=== PATIENT | male | born 1960 | race Caucasian/White ===

== ENCOUNTER 2025-11-10 07:27 | Emergency (ER) | payer OTHER ==
[~2025-11-10 07:27] MED LIST: ALDACTONE50 M1 PO; CHLORTHALIDONE25 MG PO; CORDROL20 MG PO; DEPAKOTE ER250 MG PO; DONEPEZIL HCL10 MG PO; EC NAPROSYN500 MG PO; FLEXERIL10 MG PO; FUROSEMIDE20 M1 PO; HYDROCODONE BIT1 T11 PO; LIPITOR40 MG PO; Lopressor25 MG PO; METFORMIN HYD1000 MG PO; METFORMIN500 MG PO; ONGLYZA5 MG PO; Ondansetron4 MG PO; ZESTRIL20 MG PO; ZOLOFT50 MG PO; Zestril,Prinivil5 MG PO
[2025-11-10] MEDS ORDERED: AMLODIPINE BESYL5 MG PO (07:35)
[2025-11-10] MEDS ORDERED: CITALOPRAM20 MG PO (07:35)
[2025-11-10] MEDS ORDERED: Depakote250 MG PO (07:36)
[2025-11-10] MEDS ORDERED: Clopidogrel75 MG PO (07:36)
[2025-11-10] MEDS ORDERED: HYDROXYZINE HCL25 MG PO (07:37)
[2025-11-10] MEDS ORDERED: LASIX20 MG PO (07:37)
[2025-11-10] MEDS ORDERED: JARDIANCE10 MG PO (07:38)
[2025-11-10] MEDS ORDERED: MEMANTINE HCL10 MG PO (07:38)
[2025-11-10] MEDS ORDERED: MAGNESIUM400 MG PO (07:38)
[2025-11-10] MEDS ORDERED: LORAZEPAM0.5 M1 PO (07:38)
[2025-11-10] MEDS ORDERED: EXELON1 EAC2 TD (07:39)
[2025-11-10] MEDS ORDERED: ALDACTONE25 M1 PO (07:39)
[2025-11-10] MEDS ORDERED: LOPRESSOR25 MG PO (07:39)
[2025-11-10] MEDS ORDERED: VITAMIN D350 MC3 PO (07:40)
[2025-11-10] MEDS ORDERED: ACETAMINOPHEN 325 MG TAB PO ONE (09:00)
== END 2025-11-10 09:00 ==
LOC: ED 07:27
DX: M54.50 Low back pain, unspecified (principal); I10 Essential (primary) hypertension; E11.9 Type 2 diabetes mellitus without complications; E78.5 Hyperlipidemia, unspecified; Z86.73 Personal history of transient ischemic attack (TIA), and cerebral infarction without residual deficits; Z98.890 Other specified postprocedural states; W19.XXXA Unspecified fall, initial encounter